=== PATIENT | male | born 1965 | race Caucasian/White ===

== ENCOUNTER 2021-09-14 09:08 | Inpatient (IN) | payer OTHER ==
[~2021-09-14] VITALS: Ht 172.7 cm; Wt 126.0 kg
--- NOTE | 2021-09-14 10:00 | PHYS DOC ---
Past Medical History Smoking Status: Current Every Day Smoker Alcohol Use: Occasionally General Adult EDM: Chief Complaint: FLU SYMPTOM HPI: HPI: Patient is a 56 year old male who presents with chest pressure, increasing shortness of breath, fatigue for 1 week. Patient states that shortness of breath increases with exertion. Chest pressure has been constant. Patient den ies anything making the pain better or worse. Patient states "I have felt so exhausted lately that even when at work I have to stop and take a 5-minute nap". Patient denies recent illness or fevers. Denies nausea/vomiting. Patient also reports some dizziness that comes and goes throughout the day. patient is a daily smoker, occasional alcohol use. Patient reports her sister at age 53 from an [place]. Patient has history of COPD, diabetes, hypertension. Patient has been fully vaccinated for COVID-19. Review of Systems: Review of Systems: Constitutional: Denies fever or chills. [] Eyes: Denies change in visual acuity. Reports eyes have felt heavy and glassy HENT: Denies nasal congestion or sore throat. [] Respiratory: Reports chronic cough, increasing shortness of breath,worse with exertion Cardiovascular: Reports chest pain GI: Denies abdominal pain, nausea, vomiting, bloody stools or diarrhea. [] : Denies dysuria. [] Musculoskeletal: Denies back pain or joint pain. [] Integument: Denies rash. [] Neurologic: Denies headache, focal weakness or sensory changes. [] Endocrine: Denies polyuria or polydipsia. [] Lymphatic: Denies swollen glands. [] Psychiatric: Denies depression or anxiety. [] Heart Score: C/O Chest Pain: Yes HEART Score for Chest Pain: HEART Score for Chest Pain Response (Comments) Value History Moderately Suspicious 1 ECG Normal 0 Age >45 - < 65 1 Risk Factors >3 Risk Factors or Hx CAD 2 Troponin < Normal Limit 0 Total 4 Risk Factors: Risk Factors: DM, Current or recent (<one month) smoker, HTN, HLP, family history of CAD, obesity. Risk Scores: Score 0 - 3: 2.5% MACE over next 6 weeks - Discharge Home Score 4 - 6: 20.3% MACE over next 6 weeks - Admit for Clinical Observation Score 7 - 10: 72.7% MACE over next 6 weeks - Early Invasive Strategies Physical Exam: PE: Constitutional: Well developed, well nourished, no acute distress, non-toxic appearance. [] HENT: Normocephalic, atraumatic, bilateral external ears normal, oropharynx moist, no oral exudates, nose normal. [] Eyes: PERRLA, EOMI, conjunctiva normal, no discharge., Glassy Neck: Normal range of motion, no tenderness, supple, no stridor. [] Cardiovascular:Heart rate regular rhythm, no murmur [] Lungs & Thorax: Bilateral breath sounds clear to auscultation [] Abdomen: Bowel sounds normal, soft, no tenderness, no masses, no pulsatile masses. [] Skin: Warm, dry, no erythema, no rash. [] Back: No tenderness, no CVA tenderness. [] Extremities: No tenderness, no cyanosis, no clubbing, ROM intact, no edema. [] Neurologic: Alert and oriented X 3, normal motor function, normal sensory function, no focal deficits noted. [] Psychologic: Affect normal, judgement normal, mood normal. [] EKG: EKG: [] Sinus rhythm. Peaked T waves. Heart rate [address] elevation. Read by Dr. Gmoez at 920. Radiology/Procedures: Radiology/Procedures: []EXAM: CHEST 2 VIEWS. HISTORY: Shortness of breath. COMPARISON: None. FINDINGS: Frontal and lateral views of the chest are obtained. There is a mild airspace opacity in the right base. Subpleural thickening on the left is likely secondary to subpleural fat. The hemidiaphragms are mildly flattened. There is no pneumothorax or clear pleural effusion. The heart is not enlarged. IMPRESSION: 1. Mild right basilar and perihilar infiltrate. Correlate for chronic obstructive pulmonary disease. Electronically signed by: Gladis Coleman MD (09/14/2021 10:40 AM) [id number] Course & Med Decision Making: Course & Med Decision Making Pertinent Labs and Imaging studies reviewed. (See chart for details) [] 56-year-old male who presents with chest pressure, shortness of breath with exertion, fatigue for 1 week. Work-up in ER consisted of blood work, urinalysis, chest x-ray, EKG. Hemoglobin and hematocrit are slightly elevated most likely due to smoking history. Patient currently takes 1 baby aspirin daily. Troponin was negative. D-dimer negative, 0.27. Heart score 4. All other labs unremarkable. Patient given NS bolus. Covid and influenza swabs were both negative. Chest x-ray was unremarkable. Patient's oxygen level decreased to 88%. Patient placed on 2 L nasal cannula for hypoxia. Discussed all results with patient. Advised patient he would need to be admitted for chest pain r/o and further testing. Spoke with Dr. Ryan regarding patient, who will be accepting patient for chest pain, acute respiratory failure with hypoxia. Portillo Disclaimer: Portillo Disclaimer: This electronic medical record was generated, in whole or in part, using a voice recognition dictation system. Departure Departure Impression: Primary Impression: Chest pain Qualified Codes: R07.89 - Other chest pain Additional Impression: Respiratory failure, acute Qualified Codes: J96.01 - Acute respiratory failure with hypoxia Disposition: ADMITTED INPATIENT Admitting Physician: MEETA Condition: STABLE GLYNN GAMEZ DIRECTOR OF LEARNING Sep 14, 2021 10:00
[2021-09-14 10:08] LABS: BASO % 0 % (0-3); EOS # 0.2 x10^3/uL (0.0-0.7); EOS % 3 % (0-3); HEMATOCRIT 54.4 % (39.0-53.0); HEMOGLOBIN 18.1 g/dL (13.0-17.5); LYMPH # 2.1 x10^3/uL (1.0-4.8); LYMPH % 26 % (24-48); MEAN CORPUSCULAR HEMOGLOBIN 31 pg (25-35); MEAN CORPUSCULAR HGB CONC 33 g/dL (31-37); MEAN CORPUSCULAR VOLUME 93 fL (79-100); MONO # 0.6 x10^3/uL (0.0-1.1); MONO % 8 % (0-9); NEUT # 5.1 x10^3/uL (1.8-7.7); NEUT % 63 % (31-73); PLATELET COUNT 156 x10^3/uL (140-400); RED BLOOD COUNT 5.84 x10^6/uL (4.30-5.70); RED CELL DISTRIBUTION WIDTH 14.1 % (11.5-14.5)
[2021-09-14 10:13] LABS: CALCIUM 8.6 mg/dL (8.5-10.1); CREATININE 0.9 mg/dL (0.7-1.3); GFR 87.3; POTASSIUM 4.3 mmol/L (3.5-5.1)
[2021-09-14 10:18] LABS: ALBUMIN 3.6 g/dL (3.4-5.0); MAGNESIUM 1.7 mg/dL (1.8-2.4); TOTAL BILIRUBIN 0.3 mg/dL (0.2-1.0); TOTAL PROTEIN 7.1 g/dL (6.4-8.2)
--- NOTE | 2021-09-14 10:42 | RAD ---
EXAM: CHEST 2 VIEWS. HISTORY: Shortness of breath. COMPARISON: None. FINDINGS: Frontal and lateral views of the chest are obtained. There is a mild airspace opacity in the right base. Subpleural thickening on the left is likely secon amairani to subpleural fat. The hemidiaphragms are mildly flattened. There is no pneumothorax or clear pl eural effusion. The heart is not enlarged. IMPRESSION: 1. Mild right basilar and perihilar infiltrate. Correlate for chronic obstructive pulmonary disease. Electronically signed by: Gladis Coleman MD (09/14/2021 10:40 AM) [id number]
[2021-09-14] MEDS ORDERED: IV NORMAL SALINE 1000ML BAG 1,000 ML IV ONE (10:45)
[2021-09-14 10:54] LABS: INFLUENZA A PATIENT NEGATIVE (NEGATIVE); INFLUENZA B PATIENT NEGATIVE (NEGATIVE)
[2021-09-14 11:29] LABS: BILIRUBIN,URINE NEGATIVE (NEG); CLARITY,URINE CLEAR; COLOR,URINE YELLOW; NITRITE,URINE NEGATIVE (NEG); PH,URINE 5.5 (<5.0-8.0); PROTEIN,URINE NEGATIVE (NEG-TRACE); UROBILINOGEN,URINE 0.2 mg/dL (0.2 mg/dL)
[2021-09-14 11:43] LABS: BACTERIA,URINE 0 /HPF (0-FEW); RBC,URINE 0 /HPF (0-2); WBC,URINE 0 /HPF (0-4)
[2021-09-14] MEDS ORDERED: IV NORMAL SALINE 1000ML BAG 1,000 ML IV SCH (12:00)
[2021-09-14] MEDS ORDERED: CALCIUM CARBONATE 500 MG TAB.CHEW PO PRN (12:45)
[2021-09-14] MEDS ORDERED: DEXTROSE 50% 25 GM / 50ML DISP.SYRIN. IV PRN (12:45)
[2021-09-14] MEDS ORDERED: ZOLPIDEM 5 MG TABLET. PO PRN (12:45)
[2021-09-14] MEDS ORDERED: oxyCODONE IR 5 MG TABLET PO PRN ×2 (12:45)
[2021-09-14] MEDS ORDERED: ELECTROLYTE (NON-ICU) PROTOCOL. MC PRN (12:45)
[2021-09-14] MEDS ORDERED: ACETAMINOPHEN 325 MG TABLET. PO PRN (12:45)
[2021-09-14] MEDS ORDERED: hydrALAZINE 20 MG/ML VIAL. IVP PRN (12:45)
[2021-09-14] MEDS ORDERED: ONDANSETRON PF 4 MG/2 ML VIAL. IVP PRN (12:45)
[2021-09-14] MEDS ORDERED: IPRATRPIUM/ALBUTEROL 0.5/2.5MG 3 ML NEBU. NEB PRN (12:45)
[2021-09-14] MEDS ORDERED: ALBUTEROL SULFATE 2.5 MG/3 ML NEBU. NEB PRN (12:45)
[2021-09-14] MEDS ORDERED: AMOXICILLIN/K CLAV 875/125MG TABLET. PO SCH (13:00)
[2021-09-14] MEDS ORDERED: predniSONE 20 MG TABLET PO SCH (13:00)
[2021-09-14] MEDS ORDERED: HEPARIN for SUB-Q USE 5,000 UNIT/ML VIAL. SQ SCH (14:00)
[2021-09-14 14:18] VITALS: BP 140/79
[2021-09-14] MEDS ORDERED: INSULIN LISPRO 300 UNITS/3 ML VIAL. SQ SCH (17:00)
[2021-09-14] MEDS ORDERED: SENNOSIDES/DOCUSATE 8.6/50MG TABLET. PO SCH (21:00)
--- NOTE | 2021-09-15 13:10 | EKG ---
[facility] [address] [place] [address] Test Date: 2021-09-14 Test Time: 09:19:10 Pat Name: RODRIGO RUANO Department: Room: ED HOLD 16 Gender: M Cutting Torch Operator: : [id number] Requested By: ARVIND CASH Order Number: [id number] Reading MD: Hayder Almanza Measurements Intervals [place] Rate: 77 P: 51 WV: 160 QRS: -76 QRSD: 108 T: 34 QT: 332 QTc: 377 Interpretive Statements SINUS RHYTHM LEFT ANTERIOR FASCICULAR BLOCK INCOMPLETE RIGHT BUNDLE BRANCH BLOCK ABNORMAL ECG RI6.01 No previous ECG available for comparison Electronically Signed On 09-16-2021 8:21:40 BALL SHAGGER by Hayder Almanza
--- NOTE | 2021-09-15 15:06 | NUR ---
IP: Attempted to contact pt concerning covid results. No answer, left a voicemail to return the call.
--- NOTE | 2021-09-16 09:47 | NUR ---
attempted to contact patient regarding test results. Left VM to return call.
--- NOTE | 2021-09-16 13:18 | NUR ---
IP: Pt returned the call,. Informed pt of negative covid test. pt verbalized understanding.
== END 2021-09-14 17:00 | disposition left against medical advice (07) | DRG 189 ==
LOC: ER 09:08 → ED HOLD 10:04
PROVIDERS: ADMIT Student in an Organized Health Care Education/Training Program; ATTEND Student in an Organized Health Care Education/Training Program
DX: J96.01 Acute respiratory failure with hypoxia (principal); J44.9 Chronic obstructive pulmonary disease, unspecified; I10 Essential (primary) hypertension; F17.200 Nicotine dependence, unspecified, uncomplicated; E11.9 Type 2 diabetes mellitus without complications; Z20.822 Contact with and (suspected) exposure to COVID-19; Z88.8 Allergy status to other drugs, medicaments and biological substances
CPT/HCPCS: 36415; 71046; 80053; 81001; 83735; 83880; 84484; 85025; 85379; 87426; 87804; 93005; 94640; 96360; 96361; 96372; J1644; J7030; J7512; U0003; U0005; 99285-25